=== PATIENT | female | born 1935 | race Caucasian/White ===

== ENCOUNTER → 2020-04-24 | Outpatient (CLI) | payer OTHER | LOC: SJCVC 09:45 | PROVIDERS: ATTEND Internal Medicine | DX: I10 Essential (primary) hypertension (principal); R94.31 Abnormal electrocardiogram [ECG] [EKG]; E78.5 Hyperlipidemia, unspecified; Z79.899 Other long term (current) drug therapy ==

== ENCOUNTER → 2021-04-24 | Outpatient (CLI) | payer OTHER | LOC: SJCVC 10:03 | PROVIDERS: ATTEND Internal Medicine | DX: I10 Essential (primary) hypertension (principal); E78.5 Hyperlipidemia, unspecified; R47.1 Dysarthria and anarthria; Z88.2 Allergy status to sulfonamides; Z79.899 Other long term (current) drug therapy ==